=== PATIENT | male | born 1975 | race Caucasian/White ===

== ENCOUNTER 2020-07-16 08:08 | Outpatient (CLI) | payer BC, SELFPAY ==
--- NOTE | 2020-08-27 13:42 | WPDHOMESLEEP ---
Sleep Study - Home Unattended Date of Study: 07/16/20 Ordering Provider: Lizz Horton NP Interpreting Physician: Zeynep Fine MD Home Sleep Study Type: Watch PAT Height: 1.74 m Weight: 104.78 kg Body Mass Index: 34.6 Reason for Sleep Study Snoring Sleep History Jesus Norwood is a 44-year-old man who requested a sleep study due to snoring. He did not fill out the sleep questionnaire so there is not a significant amount of history. Review of his office note show that he does have snoring. He feels rested on waking. He does not have morning headaches. He takes naps during the day. He does not fall asleep inappropriately during the day. He does not have drowsiness while driving and he does not fall asleep while driving. He does not have difficulty during activities such as watching television or reading. [facility] Past Medical History Medical History Hyperlipidemia Hypertension Surgical History Surgical History H/O shoulder surgery Family History Family History Sibling Family history of obesity Diabetes mellitus Father Hyperlipidemia Diabetes mellitus CAD (coronary artery disease) Mother Hypertension Hyperlipidemia Tumor Social History Social History Smoking status: Never smoker Alcohol intake: current Medications Home Medications Medication Instructions Recorded Confirmed Type No Home Medications 05/11/20 06/04/20 History Sleep Procedure The sleep study was completed using WatchPAT a technically adequate device with seven channels: peripheral arterial tone, actigraphy, body position, snore, respiratory movement, pulse oximetry, sleep staging, and heart rate. Prior to using the device, the patient received verbal and written instructions for its application and was provided with the help desk phone number for additional telephonic instruction with 24-hour availability of qualified personnel to answer questions. Sleep Architecture The total recording time was 5 hours 59 minutes. The sleep time was 4 hours 24 minutes. Sleep architecture showed a sleep latency of 26 minutes. The REM latency was 61 minutes which is short and suggests hypersomnolence. He had 7 awakenings. He spent 26% of the study awake after sleep onset. His sleep efficiency was 74% which is low. Sleep architecture showed 23% REM, 54% light sleep and 22% deep sleep. This is normal sleep archetecture. He had 4 REM cycles. . Respiratory Analysis The apnea-hypopnea index is normal at 0.9. The oxygen desaturation index is normal at 1.2. The patient had 4 obstructive events. There were no central events. There is no evidence of Karsten-More respirations. His apnea-hypopnea index in the supine position was 2.0. His apnea-hypopnea index in the prone position is 3.5. In the left lateral position it was 0.9. He spent the majority of the night in the left lateral position, 49.8%. He spent 32% of the night in the right lateral position and his AHI was 0. He spent 6% 7 the study prone and 11.6% supine. Best position to avoid apnea is in the right lateral position Oximetry Data The oxygen desaturation index is 1.2, normal. He had 5 desaturations, with the drop in saturations staying between 4 and 9%. He spent no time below 88%. The lowest saturation was transiently 85%. Mean saturation 96%. Snoring Profile Snoring was present. The mean intensity was 43 decibels. He spent 42.8 minutes while sleep snoring, and this was 16.2% of the night. His maximum snoring was greater than 60 decibels for 10.3 minutes, 3.9% of the study. Cardiac Profile Minimum pulse was 50, maximum pulse was 103. His mean pulse was 68. Assessment and Plan Assessment and Plan (1) Snoring: Code(s): R06.83 - Snoring
[2020-08-27 13:56] VITALS: BMI 34.6
== END 2020-07-16 08:09 | disposition home or self-care (01) ==
LOC: ANHCSM 08:09
PROVIDERS: PCP Internal Medicine; Visit Provider Nurse Practitioner
DX: G47.10 Hypersomnia, unspecified (principal); R06.83 Snoring; R03.0 Elevated blood-pressure reading, without diagnosis of hypertension
CPT/HCPCS: 95800

== ENCOUNTER → 2020-10-04 02:47 | Outpatient (CLI) | payer BC, SELFPAY ==
[2020-10-04 18:21] LABS: SARS-CoV-2 RNA PCR Negative
== END ==
PROVIDERS: PCP Internal Medicine; Visit Provider Internal Medicine Critical Care Medicine
DX: Z20.822 Contact with and (suspected) exposure to COVID-19 (principal)
CPT/HCPCS: C9803; U0003; U0005

== ENCOUNTER 2020-10-06 09:08 | Outpatient (CLI) | payer BC, SELFPAY ==
--- NOTE | 2020-10-25 17:52 | WPDSLEEPSTUD ---
Sleep Study Ordering Provider: Oleg Warren DO Interpreting Physician: Zeynep Fine MD Sleep Study Type: Polysomnogram Height: 1.73 m Weight: 231 kg Body Mass Index: 77.4 Neck Circumference (inches): 18 [place]: 5 Reason for Sleep Study The patient was scheduled for a split night study . On July 16, 2020 he had a WatchPat home sleep test with a normal apnea-hypopnea index 0.9 with loud snoring and a short REM latency suggestive of hypersomnolence. Sleep History Jesus Norwood has a history of loud snoring per his girlfriend. He does not awaken from sleep feeling short of breath. He does not awaken at night with heartburn, belching or coughing. He frequently snores loudly enough that others complain about it. He does not have trouble sleeping with a cold. He does not gasp for breath at night. He does not have breathing problems at night observed by others. He does not sweat excessively at night were noticed his heart pounding or beating irregularly at night. He does not fall asleep during the day. He denies falling asleep involuntarily or while driving. He does not have loss of muscle tone was strong emotion. 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 He does not feel paralyzed on waking or falling asleep. He does not have vivid dreamlike scenes upon awakening or falling asleep. He is never afraid to go to sleep. He does not have nightmares. He occasionally remembers his dreams. He occasionally has racing thoughts. He rarely feels sad or depressed. He occasionally feels anxiety. He does not have muscular tension or notice parts of his body jerking. He does not kick at night. He does not have crawling or aching feelings in his legs and does not have any kind of leg pain at night. He does not have morning jaw pain. He does not grind his teeth during sleep. He is not bothered by pain during the day and is not awakened by pain at night. He rarely wakes up feeling stiff in the morning with sore achy muscles. He does not wake up with pain in the neck and spine. His normal bedtime is between 9:00 p.m. and 10:00 p.m. falling asleep quickly waking once at night to urinate and is able to return to sleep easily. He wakes the morning at 5:00 a.m.. On the weekends he may go to bed between 10:00 p.m. and 11:00 p.m., waking between 6 and 7:00 a.m.. He estimates getting 7 hours of sleep night. . He does not generally take naps. He does feel refreshed after an occasional short nap. Most of the time he feels good in the morning. He rarely has memory or concentration difficulties. Habits: Tobacco: 1 can of smokeless tobacco daily. Caffeine 2 beverages daily. No alcohol. No recreational drugs. [facility] Past Medical History Medical History Hyperlipidemia Hypertension Surgical History Surgical History H/O shoulder surgery Family History Family History Sibling Family history of obesity Diabetes mellitus Father Hyperlipidemia Diabetes mellitus CAD (coronary artery disease) Mother Hypertension Hyperlipidemia Tumor Social History Social History Smoking status: Never smoker Alcohol intake: current Medications Home Medications Medication Instructions Recorded Confirmed Type No Home Medications 05/11/20 06/04/20 History Sleep Procedure This test was performed using the [employer] multiple channel system including EOG, EEG, submental EMG, EKG, nasal and oral airflow using thermistors and nasal pressure sensors, chest and abdominal belts for body position data, and pulse oximetry. Video monitoring was also performed. The study was scored using [facility] guidelines. The patient decided to leave before the test started in earnest. [facility]
[2020-10-25 18:35] VITALS: BMI 77.4
== END 2020-10-06 09:09 | disposition home or self-care (01) ==
LOC: ANHCSM 09:08
PROVIDERS: PCP Internal Medicine; Visit Provider Internal Medicine
DX: G47.10 Hypersomnia, unspecified (principal); E78.5 Hyperlipidemia, unspecified; I10 Essential (primary) hypertension; Z53.29 Procedure and treatment not carried out because of patient's decision for other reasons
CPT/HCPCS: 95810